=== PATIENT | male | born 1995 ===

== ENCOUNTER 2018-03-04 21:17 | Emergency (ER) | payer OTHER ==
[2018-03-04 22:01] VITALS: BP 110/73; PULSE 80; RESP 16; TEMP 98; O2SAT 98
--- NOTE | 2018-03-04 22:17 | ED PDOC ---
HPI: Skin/Bite Injury Time Seen by Provider: 03/04/18 22:04 Chief Complaint (Nursing): Abnormal Skin Integrity Chief Complaint (Provider): Swollen area, groin History Per: Patient History/Exam Limitations: no limitations Onset/Duration Of Symptoms: Days Current Symptoms Are (Timing): Still Present Quality Of Symptoms: Painful Severity: Moderate Pain Scale Rating Of: 5 Additional Complaint(s): 22 yo male with no medical problems reports painful lesion center pubic area. Pt reports pain x 2 days. Pt has not applied cream/lotion or done warm compresses. Pt denies fever/chills. Past Medical History Reviewed: Historical Data, Nursing Documentation, Vital Signs Vital Signs: Last Vital Signs Temp 98.0 F 03/04/18 21:55 Pulse 80 03/04/18 21:55 Resp 16 03/04/18 21:55 BP 110/73 03/04/18 21:55 Pulse Ox 98 03/04/18 21:55 - Medical History PMH: No Chronic Diseases - Surgical History Surgical History: No Surg Hx - Family History Family History: States: No Known Family Hx - Living Arrangements Living Arrangements: With Family - Social History Current smoker - smoking cessation education provided: No - Home Medications Home Medications: Ambulatory Orders Medication Instructions Recorded Sulfamethoxazole/Trimethoprim 1 each PO BID #20 tablet 03/04/18 [Bactrim 400-80 mg Tablet] - Allergies Allergies/Adverse Reactions: Allergies Allergy/AdvReac Type Severity Reaction Status Date / Time Penicillins Allergy RASH Verified 03/04/18 21:54 Review of Systems ROS Statement: Except As Marked, All Systems Reviewed And Found Negative Constitutional: Negative for: Fever, Chills Skin: Positive for: Other Physical Exam - Reviewed Nursing Documentation Reviewed: Yes Vital Signs Reviewed: Yes - Physical Exam Appears: Positive for: Well, Non-toxic, No Acute Distress Head Exam: Positive for: ATRAUMATIC, NORMAL INSPECTION, NORMOCEPHALIC Skin: Positive for: Warm. Negative for: Normal Color (Ingrown hair, pubic area with 0.5cm of localized edema, no extending erythema ) Eye Exam: Positive for: Normal appearance ENT: Positive for: Normal ENT Inspection Neck: Positive for: Normal Respiratory: Negative for: Accessory Muscle Use, Respiratory Distress, Plerual Rub Back: Positive for: Normal Inspection Extremity: Positive for: Normal ROM Neurologic/Psych: Positive for: Alert, Oriented - ECG O2 Sat by Pulse Oximetry: 98 Medical Decision Making Medical Decision Making: Discussed warm compresses and antibiotic in 2-3 dyas if infection persists. Disposition - Clinical Impression Clinical Impression: Ingrown hair - Patient ED Disposition Is Patient to be Admitted: No - Disposition Disposition: Routine/Home Disposition Time: 22:17 Condition: STABLE Prescriptions: Sulfamethoxazole/Trimethoprim [Bactrim 400-80 mg Tablet] 1 each PO BID #20 tablet Instructions: Meagan Azul Print Language: [place]
== END 2018-03-04 22:35 | disposition home or self-care (01) ==
LOC: H.ER 21:17
DX: L73.1 Pseudofolliculitis barbae (principal); Z88.0 Allergy status to penicillin